=== PATIENT | female | born 1960 | race Caucasian/White ===

== ENCOUNTER 2016-09-27 15:55 | Inpatient (IN) | payer MEDICARE, MEDICAID ==
[~2016-09-27] VITALS: Ht 152.4 cm; Wt 77.6 kg
[~2016-09-27 15:55] MED LIST: ASPI81CH43 PO; CAR3125T PO; DOXY-216 PO; ENAL2.5T PO; FURO40TA4 PO; SIMV-8 PO; SPIR25TA89 PO
[2016-09-27] MEDS ORDERED: SODIUM CHLORIDE 0.9% 1,000 ML IV ONE (16:36)
[2016-09-27 16:45] LABS: Basophils # (auto) 0 uL; Basophils % (auto) 0.7 % (0.0-2.0); Eosinophils # (auto) 0.2 uL; Eosinophils % (auto) 3.2 % (0.0-7.0); Hematocrit 45.8 % (36.0-46.0); Hemoglobin 14.9 g/dL (12.2-16.2); Lymphocytes # (auto) 1.9 uL; Lymphocytes % (auto) 31.6 % (10.0-50.0); Mean Corpuscular Hemoglobin 30.5 pg (28.0-32.0); Mean Corpuscular Hgb Conc. 32.6 g/dL (32.0-36.0); Mean Corpuscular Volume 93.8 fL (80.0-100.0); Monocytes # (auto) 0.6 uL; Monocytes % (auto) 10.6 % (0.0-12.0); Neutrophils # (auto) 3.3 uL; Neutrophils % (auto) 53.9 % (37.0-80.0); Platelet Count (auto) 193 10^3/uL (140-450); White Blood Cell 6.1 10^3/uL (4.4-10.8)
[2016-09-27 17:10] LABS: Albumin 3.2 g/dL (3.4-5.0); BUN/Creatinine Ratio 16.7; Bilirubin, Total 1.5 mg/dL (0.2-1.0); Calcium 8.3 mg/dL (8.5-10.1); Potassium 3.8 mmol/L (3.5-5.1); Total Protein 6.7 g/dL (6.4-8.2)
[2016-09-27 17:21] LABS: Partial Thromboplastin Time 29.7 sec (22.64-33.71)
[2016-09-27 17:23] LABS: INR 1.23 (0.9-1.15); Prothrombin Time 12.7 sec (9.37-12.3)
[2016-09-27 17:59] LABS: B-Type Natriuretic Peptide 2722.66 pg/mL (0-100); Temperature: 22.2 C (20.0-25.0)
[2016-09-27] MEDS ORDERED: MORPHINE SULF INJ 2 MG/ML SYRINGE 1ML IV ONE (20:30)
[2016-09-27] MEDS ORDERED: ONDANSETRON HCL 4 MG/2 ML VIAL IV ONE (20:30)
[2016-09-27] MEDS ORDERED: MORPHINE SULF INJ 2 MG/ML SYRINGE 1ML IV PRN (21:00)
[2016-09-27] MEDS ORDERED: NITROGLYCERIN 0.4 MG SL TAB SL PRN (21:00)
[2016-09-27] MEDS ORDERED: PANTOPRAZOLE SODIUM 40 MG/10 ML VIAL IV ONE (21:00)
[2016-09-27] MEDS ORDERED: ASPirin 81 mg TAB PO ONE (21:00)
[2016-09-27] MEDS ORDERED: LACTULOSE 20Gm/30ML SOLN PO PRN (21:00)
[2016-09-27] MEDS ORDERED: FUROSEMIDE 100 MG/10ML VIAL IV ONE (21:00)
[2016-09-27 21:52] VITALS: BP 144/97
[2016-09-27] MEDS: METOPROLOL TARTRATE 25 MG TAB PO SCH (22:00)
[2016-09-27] MEDS: methylPREDNISolone SOD SUCC 40 MG/ML VL IV SCH (22:59)
[2016-09-27] MEDS: ATORVASTATIN 20 MG TAB PO SCH (22:59)
[2016-09-27] MEDS: SODIUM CHLOR 0.9% PF (SALINE LOCK) 10ML VIAL IV SCH (22:59)
[2016-09-27] MEDS: IPRATROPIUM BROM 0.5 MG/2.5ML INH SOL NEB SCH (23:05)
[2016-09-27] MEDS: ALBUTEROL SULF 2.5 MG/0.5ML(0.5%) NEB SOLN NEB SCH (23:05)
[2016-09-28] MEDS: IPRATROPIUM BROM 0.5 MG/2.5ML INH SOL NEB SCH ×3 (02:00→10:43)
[2016-09-28] MEDS: ALBUTEROL SULF 2.5 MG/0.5ML(0.5%) NEB SOLN NEB SCH ×3 (02:00→10:43)
[2016-09-28 03:17] VITALS: BP 144/97
[2016-09-28 05:00] VITALS: BP 117/67
[2016-09-28 06:03] LABS: Basophils # (auto) 0 uL; Basophils % (auto) 0.3 % (0.0-2.0); Eosinophils # (auto) 0 uL; Eosinophils % (auto) 0.2 % (0.0-7.0); Hematocrit 45.2 % (36.0-46.0); Hemoglobin 14.6 g/dL (12.2-16.2); Lymphocytes # (auto) 0.5 uL; Lymphocytes % (auto) 10.4 % (10.0-50.0); Mean Corpuscular Hemoglobin 30.3 pg (28.0-32.0); Mean Corpuscular Hgb Conc. 32.3 g/dL (32.0-36.0); Mean Corpuscular Volume 93.8 fL (80.0-100.0); Mean Platelet Volume 9.2 fL (7.4-10.4); Monocytes # (auto) 0.1 uL; Monocytes % (auto) 1.5 % (0.0-12.0); Neutrophils % (auto) 87.6 % (37.0-80.0); Platelet Count (auto) 188 10^3/uL (140-450); Red Cell Distribution Width 14.1 % (11.6-16.0); White Blood Cell 4.6 10^3/uL (4.4-10.8)
[2016-09-28] MEDS: SODIUM CHLOR 0.9% PF (SALINE LOCK) 10ML VIAL IV SCH ×3 (06:12→22:20)
[2016-09-28 06:32] LABS: Albumin 3.2 g/dL (3.4-5.0); BUN/Creatinine Ratio 17.7; Bilirubin, Total 1.6 mg/dL (0.2-1.0); Calcium 8.2 mg/dL (8.5-10.1); Potassium 3.6 mmol/L (3.5-5.1); Total Protein 6.8 g/dL (6.4-8.2)
[2016-09-28 06:37] LABS: B-Type Natriuretic Peptide 2293.17 pg/mL (0-100)
[2016-09-28 09:00] VITALS: BP_SYST 129; BP_SYST 135; BP_DIAS 71; BP_DIAS 82
[2016-09-28] MEDS: methylPREDNISolone SOD SUCC 40 MG/ML VL IV SCH (09:59)
[2016-09-28] MEDS ORDERED: ASPirin 81 mg TAB PO SCH (10:00)
[2016-09-28] MEDS: ENOXAPARIN SOD 40 MG/0.4 ML SYRINGE SC SCH (10:00)
[2016-09-28] MEDS ORDERED: PANTOPRAZOLE SODIUM 40 MG/10 ML VIAL IV SCH (10:00)
[2016-09-28] MEDS ORDERED: ENOXAPARIN SOD 30 MG/0.3 ML SYRINGE SC SCH (10:00)
[2016-09-28] MEDS: NITROGLYCERIN 0.2MG/HR TOPICAL PATCH TD SCH (10:04)
[2016-09-28] MEDS: ASPirin 81 mg TAB PO SCH (10:05)
[2016-09-28] MEDS: FUROSEMIDE 40 MG/4 ML VIAL IV SCH (10:05)
[2016-09-28] MEDS: ENALAPRIL MALEATE 10 MG TAB PO SCH (10:06)
[2016-09-28] MEDS: METOPROLOL TARTRATE 25 MG TAB PO SCH ×2 (10:06→22:19)
[2016-09-28] MEDS ORDERED: BUMETANIDE (0.25MG/ML) 4 ML VIAL IV ONE (10:15)
[2016-09-28 12:41] VITALS: BP 98/58
[2016-09-28] MEDS ORDERED: NITROGLYCERIN 0.4 MG SL TAB SL PRN (13:45)
[2016-09-28 15:36] LABS: Urine Bilirubin Negative (Negative); Urine Blood Negative /uL (Negative); Urine Color Yellow (Yellow); Urine Glucose TRACE mg/dL (Normal); Urine Ketone Negative (Negative); Urine Nitrite Negative (Negative); Urine RBC 1 /hpf (0 - 4); Urine Squamous Epithelial Cell FEW /hpf (<5); Urine Urobilinogen Normal (Negative)
[2016-09-28 17:00] VITALS: BP 110/61
[2016-09-28 21:45] VITALS: BP 107/60
[2016-09-28] MEDS: ATORVASTATIN 20 MG TAB PO SCH (22:19)
[2016-09-28] MEDS: CARVEDILOL 3.125 MG TAB PO SCH (22:20)
[2016-09-29 04:51] VITALS: BP 116/81
[2016-09-29] MEDS: SODIUM CHLOR 0.9% PF (SALINE LOCK) 10ML VIAL IV SCH ×2 (06:16→14:17)
[2016-09-29] MEDS ORDERED: HYDROcodone-ACET 7.5/325MG TAB PO PRN (07:45)
[2016-09-29 08:57] VITALS: BP 124/70
[2016-09-29] MEDS: ENOXAPARIN SOD 40 MG/0.4 ML SYRINGE SC SCH (09:42)
[2016-09-29] MEDS: ASPirin 81 mg TAB PO SCH (09:43)
[2016-09-29] MEDS: ENALAPRIL MALEATE 10 MG TAB PO SCH (09:44)
[2016-09-29] MEDS: FUROSEMIDE 40 MG/4 ML VIAL IV SCH (09:45)
[2016-09-29] MEDS: CARVEDILOL 3.125 MG TAB PO SCH (09:45)
[2016-09-29] MEDS: METOPROLOL TARTRATE 25 MG TAB PO SCH (09:46)
[2016-09-29] MEDS: NITROGLYCERIN 0.2MG/HR TOPICAL PATCH TD SCH (09:46)
[2016-09-29 13:00] VITALS: BP 92/62
[2016-09-29 14:56] VITALS: BP 124/70
[2016-09-29 15:12] VITALS: BP 124/70
== END 2016-09-29 16:25 | disposition home or self-care (01) | DRG 292 ==
LOC: ER 15:59 → OVERFLOW 16:00 → WEST WING 21:52 → TELE-WESTW 09-28 20:10
PROVIDERS: ADMIT Surgery; ATTEND Internal Medicine
DX: I11.0 Hypertensive heart disease with heart failure (principal); J44.1 Chronic obstructive pulmonary disease with (acute) exacerbation; I50.23 Acute on chronic systolic (congestive) heart failure; I42.7 Cardiomyopathy due to drug and external agent; E78.5 Hyperlipidemia, unspecified; F14.10 Cocaine abuse, uncomplicated; J45.909 Unspecified asthma, uncomplicated; F15.10 Other stimulant abuse, uncomplicated; K80.20 Calculus of gallbladder without cholecystitis without obstruction; K76.9 Liver disease, unspecified; Z80.0 Family history of malignant neoplasm of digestive organs; Z80.3 Family history of malignant neoplasm of breast; Z80.8 Family history of malignant neoplasm of other organs or systems; Z82.0 Family history of epilepsy and other diseases of the nervous system; Z95.810 Presence of automatic (implantable) cardiac defibrillator; Z91.19 Patient's noncompliance with other medical treatment and regimen; Z83.3 Family history of diabetes mellitus; Z82.5 Family history of asthma and other chronic lower respiratory diseases; Z82.49 Family history of ischemic heart disease and other diseases of the circulatory system; Z79.899 Other long term (current) drug therapy; Z79.82 Long term (current) use of aspirin
CPT/HCPCS: 36415; 71020; 80053; 80061; 81001; 83735; 83880; 84132; 84443; 84484; 85025; 85049; 85379; 85610; 85730; 93005; 93306; 94640; 94761; 96361; 96374; 96375; C9113; G0434; J2405

== ENCOUNTER 2017-10-11 03:13 | Inpatient (IN) | payer MEDICARE, MEDICAID ==
[~2017-10-11] VITALS: Ht 152.4 cm; Wt 64.0 kg
[~2017-10-11 03:13] MED LIST changes: +ATOR40TA52 PO; -DOXY-216 PO; +FURO40TA PO; +POTA10TA51 PO; -SIMV-8 PO
[2017-10-11 03:54] LABS: Basophils # (auto) 0 uL; Basophils % (auto) 0.6 % (0.0-2.0); Eosinophils # (auto) 0.1 uL; Eosinophils % (auto) 2.3 % (0.0-7.0); Hematocrit 49.9 % (36.0-46.0); Hemoglobin 16.5 g/dL (12.2-16.2); Lymphocytes % (auto) 35.9 % (10.0-50.0); Mean Corpuscular Volume 93.8 fL (80.0-100.0); Monocytes # (auto) 0.5 uL; Monocytes % (auto) 9.3 % (0.0-12.0); Neutrophils # (auto) 2.9 uL; Neutrophils % (auto) 51.9 % (37.0-80.0); Nucleated Red Blood Cells % 0.1 %; Platelet Count (auto) 183 10^3/uL (140-450); Red Blood Cells 5.32 10^6/uL (4.0-5.20); Red Cell Distribution Width 14.3 % (11.8-14.3); White Blood Cell 5.6 10^3/uL (4.4-10.8)
[2017-10-11 04:10] LABS: INR 1.16 (0.9-1.15); Prothrombin Time 12.7 sec (9.37-12.3)
[2017-10-11 04:11] LABS: Albumin 3.5 g/dL (3.4-5.0); Calcium 9.3 mg/dL (8.5-10.1)
[2017-10-11 04:13] LABS: BUN/Creatinine Ratio 14.3
[2017-10-11 04:18] LABS: Bilirubin, Total 1.2 mg/dL (0.2-1.0); Total Protein 7.4 g/dL (6.4-8.2)
[2017-10-11 04:34] LABS: Urine Bacteria NONE SEEN /hpf (None Seen); Urine Blood Negative /uL (Negative); Urine Specific Gravity 1.016 (1.001-1.035); Urine WBC <1 /hpf (0 - 5)
[2017-10-11 05:47] LABS: Alcohol, Urine < 3.0 mg/dL (0-5); Amphetamine Screen, Urine POSITIVE (NEGATIVE); Barbiturate Scree,Urine NEGATIVE (NEGATIVE); Benzodiazephine Screen, Urine NEGATIVE (NEGATIVE); Cannabinoid Screen, Urine NEGATIVE (NEGATIVE); Cocaine Screen, Urine NEGATIVE (NEGATIVE); Opiate Scree,Urine NEGATIVE (NEGATIVE); Phencyclidine Screen, Urine NEGATIVE (NEGATIVE)
[2017-10-11] MEDS ORDERED: ASPirin 81 mg TAB PO ONE (07:00)
[2017-10-11] MEDS ORDERED: ENOXAPARIN SOD 60 MG/0.6 ML SYRINGE SC ONE (07:00)
[2017-10-11] MEDS ORDERED: MORPHINE SULFATE 4 MG/ML SYR/VIAL IV PRN (10:00)
[2017-10-11] MEDS ORDERED: ACETAMINOPHEN 325 MG TAB PO PRN (10:00)
[2017-10-11] MEDS ORDERED: LORazepam 0.5 MG TAB PO PRN (10:00)
[2017-10-11] MEDS ORDERED: ALUM & MAG HYDROX-SIMETH LIQ(MAALOX) 30 ML PO ONE (10:00)
[2017-10-11] MEDS ORDERED: ZOLPIDEM TARTRATE 5 MG TAB PO PRN (10:00)
[2017-10-11] MEDS ORDERED: NITROGLYCERIN 0.4 MG SL TAB SL PRN ×2 (10:00)
[2017-10-11] MEDS ORDERED: ONDANSETRON HCL 4 MG/2 ML VIAL IV PRN (10:00)
[2017-10-11] MEDS ORDERED: MORPHINE SULF INJ 2 MG/ML SYRINGE 1ML IV PRN (10:00)
[2017-10-11] MEDS ORDERED: cloNIDine HCL 0.1 MG TAB PO PRN (10:15)
[2017-10-11] MEDS ORDERED: LEVOFLOXACIN 500MG 100 ML IV ONE (10:15)
[2017-10-11] MEDS ORDERED: DEXTROSE (50%) 50ML SYRG IV PRN (10:15)
[2017-10-11] MEDS: ASPirin 81 mg TAB PO SCH (10:42)
[2017-10-11 10:48] VITALS: BP 126/93
[2017-10-11] MEDS: FUROSEMIDE 40 MG TAB PO SCH (11:03)
[2017-10-11] MEDS: ENALAPRIL MALEATE 2.5 MG TAB PO SCH ×2 (11:04→22:25)
[2017-10-11] MEDS: CLOPIDOGREL BISULFATE 75 MG TAB PO SCH (11:04)
[2017-10-11] MEDS: CARVEDILOL 3.125 MG TAB PO SCH ×2 (11:05→22:24)
[2017-10-11] MEDS: DOCUSATE SOD 100 MG CAP PO SCH (11:05)
[2017-10-11] MEDS: POTASSIUM CHL 10 Meq TABLET PO SCH (11:56)
[2017-10-11] MEDS: ACCU-CHEK COMFORT CURVE STRIP VI SCH ×3 (12:01→22:26)
[2017-10-11] MEDS: ALBUTEROL SULF 2.5 MG/0.5ML(0.5%) NEB SOLN NEB SCH ×2 (12:20→19:43)
[2017-10-11] MEDS: IPRATROPIUM BROM 0.5 MG/2.5ML INH SOL NEB SCH ×2 (12:20→19:43)
[2017-10-11] MEDS: InsuLIN REG 1unit/0.01ml Soln (100units/ml) SC SCH ×3 (12:40→22:25)
[2017-10-11] MEDS: SODIUM CHLOR 0.9% PF (SALINE LOCK) 10ML VIAL IV SCH ×2 (14:00→22:24)
[2017-10-11 14:19] VITALS: BP 94/72
[2017-10-11 14:25] VITALS: BP 104/70
[2017-10-11 16:26] VITALS: BP 104/72
[2017-10-11 20:00] VITALS: BP 120/90
[2017-10-11 21:44] VITALS: BP 120/90
[2017-10-11] MEDS: ATORVASTATIN 20 MG TAB PO SCH (22:24)
[2017-10-12] MEDS: IPRATROPIUM BROM 0.5 MG/2.5ML INH SOL NEB SCH ×4 (00:24→19:22)
[2017-10-12] MEDS: ALBUTEROL SULF 2.5 MG/0.5ML(0.5%) NEB SOLN NEB SCH ×4 (00:24→19:22)
[2017-10-12 04:54] VITALS: BP 117/86
[2017-10-12] MEDS: SODIUM CHLOR 0.9% PF (SALINE LOCK) 10ML VIAL IV SCH ×3 (05:36→21:43)
[2017-10-12 05:51] LABS: Basophils # (auto) 0 uL; Basophils % (auto) 0.9 % (0.0-2.0); Eosinophils # (auto) 0.1 uL; Eosinophils % (auto) 3.6 % (0.0-7.0); Hematocrit 43.4 % (36.0-46.0); Hemoglobin 14.8 g/dL (12.2-16.2); Lymphocytes # (auto) 1.5 uL; Lymphocytes % (auto) 39.7 % (10.0-50.0); Mean Corpuscular Hemoglobin 31.5 pg (28.0-32.0); Mean Corpuscular Volume 92.8 fL (80.0-100.0); Monocytes # (auto) 0.4 uL; Monocytes % (auto) 10.4 % (0.0-12.0); Neutrophils # (auto) 1.7 uL; Neutrophils % (auto) 45.4 % (37.0-80.0); Nucleated Red Blood Cells % 0.3 %; Platelet Count (auto) 158 10^3/uL (140-450); Red Blood Cells 4.68 10^6/uL (4.0-5.20); Red Cell Distribution Width 14.4 % (11.8-14.3); White Blood Cell 3.7 10^3/uL (4.4-10.8)
[2017-10-12 06:24] LABS: Albumin 2.9 g/dL (3.4-5.0); BUN/Creatinine Ratio 22.6; Bilirubin, Total 1.1 mg/dL (0.2-1.0); Calcium 8.8 mg/dL (8.5-10.1); Magnesium 2.2 mg/dL (1.6-2.6); Potassium 3.9 mmol/L (3.5-5.1); Total Protein 6.3 g/dL (6.4-8.2)
[2017-10-12] MEDS: InsuLIN REG 1unit/0.01ml Soln (100units/ml) SC SCH ×4 (06:59→21:44)
[2017-10-12] MEDS: ACCU-CHEK COMFORT CURVE STRIP VI SCH ×4 (06:59→21:44)
[2017-10-12 09:17] VITALS: BP 132/87
[2017-10-12] MEDS: ASPirin 81 mg TAB PO SCH (10:16)
[2017-10-12] MEDS: POTASSIUM CHL 10 Meq TABLET PO SCH (10:16)
[2017-10-12] MEDS: DOCUSATE SOD 100 MG CAP PO SCH (10:16)
[2017-10-12] MEDS: CLOPIDOGREL BISULFATE 75 MG TAB PO SCH (10:16)
[2017-10-12] MEDS: ENALAPRIL MALEATE 2.5 MG TAB PO SCH ×2 (10:19→21:44)
[2017-10-12] MEDS: CARVEDILOL 3.125 MG TAB PO SCH ×2 (10:19→21:43)
[2017-10-12] MEDS: FUROSEMIDE 40 MG TAB PO SCH (10:20)
[2017-10-12] MEDS: LEVOFLOXACIN 500MG 100 ML IV SCH (10:22)
[2017-10-12 13:21] VITALS: BP 123/90
[2017-10-12 16:55] VITALS: BP 94/64
[2017-10-12] MEDS: ATORVASTATIN 20 MG TAB PO SCH (21:43)
[2017-10-12 22:07] VITALS: BP 104/72
[2017-10-13] MEDS: IPRATROPIUM BROM 0.5 MG/2.5ML INH SOL NEB SCH ×3 (00:30→11:46)
[2017-10-13] MEDS: ALBUTEROL SULF 2.5 MG/0.5ML(0.5%) NEB SOLN NEB SCH ×3 (00:30→11:46)
[2017-10-13 05:43] VITALS: BP 114/83
[2017-10-13] MEDS: ACCU-CHEK COMFORT CURVE STRIP VI SCH ×2 (05:55→11:30)
[2017-10-13] MEDS: InsuLIN REG 1unit/0.01ml Soln (100units/ml) SC SCH ×2 (05:55→11:30)
[2017-10-13] MEDS: SODIUM CHLOR 0.9% PF (SALINE LOCK) 10ML VIAL IV SCH (05:55)
[2017-10-13 06:26] LABS: Basophils # (auto) 0 uL; Basophils % (auto) 0.8 % (0.0-2.0); Eosinophils # (auto) 0.2 uL; Eosinophils % (auto) 3.1 % (0.0-7.0); Hematocrit 47.3 % (36.0-46.0); Hemoglobin 15.7 g/dL (12.2-16.2); Lymphocytes % (auto) 39.7 % (10.0-50.0); Mean Corpuscular Hemoglobin 31.1 pg (28.0-32.0); Mean Corpuscular Hgb Conc. 33.2 g/dL (32.0-36.0); Mean Corpuscular Volume 93.8 fL (80.0-100.0); Monocytes # (auto) 0.5 uL; Monocytes % (auto) 10.5 % (0.0-12.0); Neutrophils # (auto) 2.3 uL; Neutrophils % (auto) 45.9 % (37.0-80.0); Nucleated Red Blood Cells % 0.3 %; Platelet Count (auto) 170 10^3/uL (140-450); Red Blood Cells 5.04 10^6/uL (4.0-5.20); Red Cell Distribution Width 14.2 % (11.8-14.3); White Blood Cell 4.9 10^3/uL (4.4-10.8)
[2017-10-13 06:47] LABS: BUN/Creatinine Ratio 29.8; Potassium 4.3 mmol/L (3.5-5.1)
[2017-10-13 08:00] VITALS: BP 135/89
[2017-10-13] MEDS: DOCUSATE SOD 100 MG CAP PO SCH (10:48)
[2017-10-13] MEDS: CLOPIDOGREL BISULFATE 75 MG TAB PO SCH (10:49)
[2017-10-13] MEDS: ASPirin 81 mg TAB PO SCH (10:49)
[2017-10-13] MEDS: POTASSIUM CHL 10 Meq TABLET PO SCH (10:49)
[2017-10-13] MEDS: CARVEDILOL 3.125 MG TAB PO SCH (10:50)
[2017-10-13] MEDS: ENALAPRIL MALEATE 2.5 MG TAB PO SCH (10:50)
[2017-10-13] MEDS: FUROSEMIDE 40 MG TAB PO SCH (10:50)
[2017-10-13] MEDS: LEVOFLOXACIN 500MG 100 ML IV SCH (10:51)
[2017-10-13] MEDS ORDERED: LEVO500T21 PO (11:54)
[2017-10-13 12:41] VITALS: BP 125/75
== END 2017-10-13 16:00 | disposition home or self-care (01) | DRG 291 ==
LOC: ER 03:15 → TELE 03:16 → TELE-EAST 14:53
PROVIDERS: ADMIT Internal Medicine; ATTEND Internal Medicine
DX: I13.0 Hypertensive heart and chronic kidney disease with heart failure and stage 1 through stage 4 chronic kidney disease, or unspecified chronic kidney disease (principal); I50.43 Acute on chronic combined systolic (congestive) and diastolic (congestive) heart failure; D68.9 Coagulation defect, unspecified; E11.21 Type 2 diabetes mellitus with diabetic nephropathy; D75.1 Secondary polycythemia; E11.22 Type 2 diabetes mellitus with diabetic chronic kidney disease; J44.0 Chronic obstructive pulmonary disease with (acute) lower respiratory infection; I42.7 Cardiomyopathy due to drug and external agent; F41.9 Anxiety disorder, unspecified; I25.5 Ischemic cardiomyopathy; J44.9 Chronic obstructive pulmonary disease, unspecified; N18.2 Chronic kidney disease, stage 2 (mild); B19.20 Unspecified viral hepatitis C without hepatic coma; B18.2 Chronic viral hepatitis C; E78.5 Hyperlipidemia, unspecified; F15.10 Other stimulant abuse, uncomplicated; F17.210 Nicotine dependence, cigarettes, uncomplicated; J20.9 Acute bronchitis, unspecified; T50.995A Adverse effect of other drugs, medicaments and biological substances, initial encounter; Z82.49 Family history of ischemic heart disease and other diseases of the circulatory system; Z83.3 Family history of diabetes mellitus; Z91.19 Patient's noncompliance with other medical treatment and regimen; Z79.899 Other long term (current) drug therapy; Z80.8 Family history of malignant neoplasm of other organs or systems; Y92.89 Other specified places as the place of occurrence of the external cause; Z71.51 Drug abuse counseling and surveillance of drug abuser; Z71.6 Tobacco abuse counseling; Z95.810 Presence of automatic (implantable) cardiac defibrillator
CPT/HCPCS: 36415; 71046; 80048; 80053; 80061; 80307; 81001; 82962; 83036; 83735; 83880; 84443; 84484; 85025; 85610; 85730; 93005; 93306; 93970; 94640; 96372; 96374; J1815; J1956

== ENCOUNTER 2017-12-02 14:33 | Observation (INO) | payer MEDICARE, MEDICAID ==
[~2017-12-02] VITALS: Ht 170.2 cm; Wt 65.8 kg
[~2017-12-02 14:33] MED LIST changes: -ATOR40TA52 PO; -ENAL2.5T PO; -FURO40TA PO; +LEVO500T21 PO; -SPIR25TA89 PO
[2017-12-02] MEDS ORDERED: LIDOCAINE 2% (LOCAL ANESTH.) PF 5ml SDV ONE (15:52)
[2017-12-02] MEDS ORDERED: LIDOCAINE 2% (LOCAL ANESTH.) PF 5ml SDV IJ ONE (16:30)
[2017-12-02] MEDS ORDERED: SODIUM CHLORIDE 0.9% 1,000 ML IV ONE (16:49)
[2017-12-02] MEDS ORDERED: ONDANSETRON HCL 4 MG/2 ML VIAL IV ONE (17:15)
[2017-12-02] MEDS ORDERED: TETANUS-DIPTH-ACEL PERTUSSIS 0.5ML SYRG IM ONE (17:15)
[2017-12-02] MEDS ORDERED: ONDANSETRON HCL 4 MG/2 ML VIAL ONE (17:17)
[2017-12-02 17:38] LABS: Basophils # (auto) 0 uL; Basophils % (auto) 0.5 % (0.0-2.0); Eosinophils # (auto) 0.1 uL; Eosinophils % (auto) 0.8 % (0.0-7.0); Hematocrit 48.4 % (36.0-46.0); Hemoglobin 15.6 g/dL (12.2-16.2); Lymphocytes # (auto) 1.7 uL; Lymphocytes % (auto) 18.1 % (10.0-50.0); Mean Corpuscular Hemoglobin 29.4 pg (28.0-32.0); Mean Corpuscular Hgb Conc. 32.1 g/dL (32.0-36.0); Mean Corpuscular Volume 91.6 fL (80.0-100.0); Monocytes # (auto) 0.6 uL; Monocytes % (auto) 6.1 % (0.0-12.0); Neutrophils % (auto) 74.5 % (37.0-80.0); Nucleated Red Blood Cells % 0.1 %; Platelet Count (auto) 186 10^3/uL (140-450); Red Blood Cells 5.28 10^6/uL (4.0-5.20); Red Cell Distribution Width 14.4 % (11.8-14.3); White Blood Cell 9.4 10^3/uL (4.4-10.8)
[2017-12-02 17:44] LABS: BUN/Creatinine Ratio 19.4; Calcium 9.1 mg/dL (8.5-10.1); Magnesium 1.9 mg/dL (1.6-2.6); Potassium 3.8 mmol/L (3.5-5.1)
[2017-12-02] MEDS ORDERED: IOHEXOL 300 MG/ML 100ML BOTTLE IJ ONE (18:21)
[2017-12-02] MEDS ORDERED: SODIUM CHLORIDE 0.9% 500 ML IV ONE (22:45)
[2017-12-02] MEDS ORDERED: HETASTARCH 500 ML IV ONE (23:30)
[2017-12-03 00:49] LABS: BUN/Creatinine Ratio 27.4; Calcium 7.8 mg/dL (8.5-10.1); Potassium 3.3 mmol/L (3.5-5.1)
[2017-12-03] MEDS ORDERED: ACETAMINOPHEN 325 MG TAB PO ONE (09:45)
[2017-12-03 11:15] VITALS: BP 97/58
== END 2017-12-03 11:29 | disposition home or self-care (01) | DRG 605 ==
LOC: EDBD 14:33 → ER 14:33 → OVERFLOW 14:34 → ER 12-03 11:27
PROVIDERS: ADMIT Emergency Medicine; ATTEND Emergency Medicine
DX: S01.01XA Laceration without foreign body of scalp, initial encounter (principal); S09.90XA Unspecified injury of head, initial encounter; I50.9 Heart failure, unspecified; I11.0 Hypertensive heart disease with heart failure; S29.8XXA Other specified injuries of thorax, initial encounter; S39.81XA Other specified injuries of abdomen, initial encounter; J44.9 Chronic obstructive pulmonary disease, unspecified; E78.5 Hyperlipidemia, unspecified; F15.10 Other stimulant abuse, uncomplicated; V89.2XXA Person injured in unspecified motor-vehicle accident, traffic, initial encounter; Y93.89 Activity, other specified; Y92.410 Unspecified street and highway as the place of occurrence of the external cause; Y99.8 Other external cause status; Z82.49 Family history of ischemic heart disease and other diseases of the circulatory system; Z83.3 Family history of diabetes mellitus; Z95.810 Presence of automatic (implantable) cardiac defibrillator; Z23 Encounter for immunization
CPT/HCPCS: 36415; 70450; 71260; 72125; 74177; 80048; 82550; 83735; 84484; 85025; 85379; 90471; 90715; 93005; 96361; 96365; 96375; 99285; G0378; J2405; Q9967

== ENCOUNTER 2021-07-18 06:34 | Emergency (ER) | payer OTHER, MEDICARE, MEDICAID ==
[~2021-07-18] VITALS: Ht 180.3 cm; Wt 64.4 kg
[~2021-07-18 06:34] MED LIST changes: -LEVO500T21 PO; +LEVO500T31 PO
[2021-07-18 07:36] VITALS: BP 138/96
== END 2021-07-18 08:00 | disposition home or self-care (01) ==
LOC: ER 06:34
DX: S40.012A Contusion of left shoulder, initial encounter (principal); I11.0 Hypertensive heart disease with heart failure; I50.9 Heart failure, unspecified; J44.9 Chronic obstructive pulmonary disease, unspecified; E78.5 Hyperlipidemia, unspecified; Z95.0 Presence of cardiac pacemaker; Z98.890 Other specified postprocedural states; F15.10 Other stimulant abuse, uncomplicated; V43.53XA Car driver injured in collision with pick-up truck in traffic accident, initial encounter; Y93.89 Activity, other specified; Y92.410 Unspecified street and highway as the place of occurrence of the external cause; Y99.8 Other external cause status